=== PATIENT | female | born 1990 | race Caucasian/White ===

== ENCOUNTER → 2019-11-25 | Outpatient (CLI) | payer OTHER | LOC: COL.RAD 07:23 | DX: R68.81 Early satiety (principal) | CPT/HCPCS: A9541 ==

== ENCOUNTER 2021-05-02 23:04 | Emergency (ER) | payer OTHER ==
[~2021-05-02] VITALS: Ht 172.7 cm; Wt 72.7 kg
[2021-05-02 23:15] VITALS: TEMP 97.7
[2021-05-03 00:57] LABS: BASO # 0.1 K/mm3 (0.0-0.2); BASO % 0.8 % (0.0-2.0); EOS # 0.6 K/mm3 (0.0-0.7); EOS % 7.8 % (0-4.0); GRAN # 3.3 K/mm3 (1.4-6.5); GRAN % 42.5 % (42.2-75.2); HEMATOCRIT 37.4 % (37.0-47.0); HEMOGLOBIN 12.8 g/dl (12.5-16.0); LYMPH # 3.2 K/mm3 (1.2-3.4); LYMPH % 41.8 % (20.0-51.0); MEAN CELL VOLUME 94 fl (80.0-100.0); MEAN CORPUSCULAR HEMOGLOBIN 32 pg (27.0-31.0); MEAN CORPUSCULAR HGB CONC 34 g/dl (33.0-37.0); MEAN PLATELET VOLUME 11.6 fl (7.4-10.4); MONO # 0.5 K/mm3 (0.1-0.6); MONO % 6.7 % (1.7-9.3); PLATELET COUNT 255 K/mm3 (130-400); RED BLOOD COUNT 3.97 M/mm3 (4.10-5.30); REDCELL DISTRIBUTION WIDTH-CV 12.2 % (11.5-14.5)
[2021-05-03 01:10] LABS: ALBUMIN 3.4 gm/dL (3.5-5.0); BILIRUBIN,TOTAL 0.2 mg/dL (0.2-1.2); CREATININE, serum 0.77 mg/dL (0.57-1.11); POTASSIUM 5.2 mmol/L (3.5-4.5); TOTAL PROTEIN 7.5 gm/dL (6.2-8.1)
[2021-05-03 03:20] VITALS: BP 134/70; PULSE 82
== END 2021-05-03 03:20 | disposition home or self-care (01) ==
LOC: COL.ER 23:04
PROVIDERS: Emergency Medicine
DX: O72.1 Other immediate postpartum hemorrhage (principal)

== ENCOUNTER 2021-12-18 18:25 | Emergency (ER) | payer OTHER ==
[~2021-12-18] VITALS: Ht 172.7 cm; Wt 72.7 kg
[2021-12-18 18:29] VITALS: TEMP 97.7
[2021-12-18 19:44] LABS: BASO % 0.6 % (0.0-2.0); EOS # 0.5 K/mm3 (0.0-0.7); EOS % 8.4 % (0.0-4.0); GRAN # 2.3 K/mm3 (1.4-6.5); HEMATOCRIT 43.2 % (37.0-47.0); HEMOGLOBIN 14.6 g/dl (12.5-16.0); LYMPH % 47.3 % (20.0-51.0); MEAN CELL VOLUME 90 fl (80.0-100.0); MEAN CORPUSCULAR HEMOGLOBIN 31 pg (27-31); MEAN CORPUSCULAR HGB CONC 34 g/dl (33.0-37.0); MEAN PLATELET VOLUME 10.9 fl (7.4-10.4); MONO # 0.5 K/mm3 (0.1-0.6); MONO % 7.5 % (1.7-9.3); PLATELET COUNT 215 K/mm3 (130-400); RED BLOOD COUNT 4.78 M/mm3 (4.10-5.30); REDCELL DISTRIBUTION WIDTH-CV 12.1 % (11.5-14.5)
[2021-12-18 19:59] LABS: ALBUMIN 4.4 gm/dL (3.5-5.0); BILIRUBIN,TOTAL 0.4 mg/dL (0.2-1.2); CALCIUM 9.3 mg/dL (8.4-10.2); CREATININE, serum 0.76 mg/dL (0.57-1.11); POTASSIUM 3.8 mmol/L (3.5-4.5); TOTAL PROTEIN 7.5 gm/dL (6.2-8.1)
[2021-12-18 20:37] VITALS: BP 130/86; PULSE 93
== END 2021-12-18 20:38 | disposition home or self-care (01) ==
LOC: COL.ER 18:25
PROVIDERS: Nurse Practitioner
DX: R51.9 Headache, unspecified (principal); M54.2 Cervicalgia; Z28.310 Unvaccinated for COVID-19

== ENCOUNTER 2021-12-21 12:00 | Emergency (ER) | payer OTHER ==
[~2021-12-21] VITALS: Ht 172.7 cm; Wt 74.1 kg
[2021-12-21 12:12] VITALS: TEMP 98.3
[2021-12-21 13:47] LABS: BASO % 0.7 % (0.0-2.0); EOS # 0.5 K/mm3 (0.0-0.7); EOS % 9.2 % (0.0-4.0); GRAN # 2.5 K/mm3 (1.4-6.5); GRAN % 42.9 % (42.2-75.2); HEMATOCRIT 39.8 % (37.0-47.0); HEMOGLOBIN 13.7 g/dl (12.5-16.0); LYMPH # 2.3 K/mm3 (1.2-3.4); LYMPH % 39.6 % (20.0-51.0); MEAN CELL VOLUME 89 fl (80.0-100.0); MEAN CORPUSCULAR HEMOGLOBIN 31 pg (27-31); MEAN CORPUSCULAR HGB CONC 34 g/dl (33.0-37.0); MEAN PLATELET VOLUME 10.7 fl (7.4-10.4); MONO # 0.4 K/mm3 (0.1-0.6); MONO % 7.4 % (1.7-9.3); PLATELET COUNT 219 K/mm3 (130-400); RED BLOOD COUNT 4.46 M/mm3 (4.10-5.30); REDCELL DISTRIBUTION WIDTH-CV 11.9 % (11.5-14.5)
[2021-12-21 14:03] LABS: ALANINE AMINOTRANSFERASE 13 U/L (0-55); ALBUMIN 4.2 gm/dL (3.5-5.0); ALKALINE PHOSPHATASE 83 U/L (40-150); ANION GAP 13 mmol/L (7-16); AST,SGOT 15 U/L (5-34); BILIRUBIN,TOTAL 0.8 mg/dL (0.2-1.2); BLOOD UREA NITROGEN 13 mg/dL (7-19); CALCIUM 9.3 mg/dL (8.4-10.2); CARBON DIOXIDE 21 mmol/L (22-29); CHLORIDE 106 mmol/L (98-107); CREATININE, serum 0.72 mg/dL (0.57-1.11); GLUCOSE 82 mg/dL (70-99); SODIUM 140 mmol/L (136-145)
[2021-12-21 14:17] LABS: TROPONIN-I < 0.010 ng/mL (0.00-0.033)
[2021-12-21 14:46] VITALS: BP 105/74; PULSE 72
== END 2021-12-21 14:48 | disposition home or self-care (01) ==
LOC: COL.ER 12:00
PROVIDERS: Physician Assistant
DX: K21.9 Gastro-esophageal reflux disease without esophagitis (principal); Z87.19 Personal history of other diseases of the digestive system; Z28.310 Unvaccinated for COVID-19

== ENCOUNTER → 2023-03-12 | Outpatient (CLI) | payer OTHER | LOC: CANSCHCLI → COL.CARD 09:37 → COL.PUL 10:00 → COL.CARD 10:00 | DX: R06.02 Shortness of breath (principal) ==

== ENCOUNTER 2023-09-25 13:02 | Emergency (ER) | payer OTHER ==
[~2023-09-25] VITALS: Ht 172.7 cm; Wt 72.7 kg
[2023-09-25 13:06] VITALS: TEMP 98.5
[2023-09-25] MEDS ORDERED: NS 1,000 ML IV ONE (13:30)
[2023-09-25] MEDS ORDERED: methylPREDNISolone Sod Succ 125 MG/2 ML VIAL IV ONE (13:30)
[2023-09-25] MEDS ORDERED: Ondansetron 4 MG/2 ML VIAL IV ONE (13:30)
[2023-09-25 15:08] VITALS: BP 104/76; PULSE 82
== END 2023-09-25 15:08 | disposition home or self-care (01) ==
LOC: COL.ER 13:02
DX: T80.52XA Anaphylactic reaction due to vaccination, initial encounter (principal)
CPT/HCPCS: J2405; J2919; J7030